=== PATIENT | female | born 1985 | race Hispanic/Latino ===

== ENCOUNTER 2020-03-20 11:37 | Emergency (ER) | payer SELFPAY ==
[~2020-03-20] VITALS: Ht 162.6 cm; Wt 90.7 kg
--- NOTE | 2020-03-20 13:28 | Diagnostic Imaging Report ---
X-ray left foot multiple views History: Trauma Comparison: None. Findings: No acute fracture, subluxation, radiopaque foreign body. There is significant soft tissue swelling on the medial aspect and dorsum of the foot. Impression: As above. Signed by: Boaz Winter MD on 03/20/2020 1:25 PM
--- NOTE | 2020-03-20 13:49 | Emergency Department Note ---
History of Present Illnes History of Present Illness Chief Complaint: Extremity Trauma/Pain History of Present Illness This is a 34 year old female Chief Complaint Comment Reports that she rolled her left foot inward and now has pain bearing weight. Pt has swelling and bruising to left foot on the top and toward the middle inward. . Historian: Patient Arrival Mode: Car Onset (how long ago): day(s) (2) Location: left foot Quality: sharp Radiation: Denies non-radiation, Denies back, Denies neck, Denies extremity, Denies abdomen, Denies periumbilical, Denies flank, Denies proximal, Denies distal, Denies other Severity: moderate Onset quality: sudden Duration (how long): day(s) (2) Timing of current episode: constant Progression: waxing and waning Chronicity: new Context: Denies recent illness, Denies recent surgery, Denies recent immobilization, Denies recent travel, Denies trauma/injury, Denies new medications, Denies hx of DVT/PE, Denies non-compliance w/ medications, Denies other Relieving factors: rest Exacerbating factors: movement Associated symptoms: Denies denies other symptoms, Denies confusion, Denies chest pain, Denies cough, Denies diaphoresis, Denies fever/chills, Denies headaches, Denies loss of appetite, Denies malaise, Denies nausea/vomiting, Denies rash, Denies seizure, Denies shortness of breath, Denies syncope, Denies weakness, Denies other Treatments prior to arrival: none Past Medical/Family History Physician Review I have reviewed the patient's past medical and family history. Any updates have been documented here. Past Medical History Recent Fever: No Clinical Suspicion of Infectio: No New/Unexplained Change in Ment: No Past Medical History: Asthma Past Surgical History: None Social History Smoking Cessation: Never Smoker Counseling Performed: No Alcohol Use: Occasional Any Illegal Drug Use: No Physically hurt or threatened: No Other Any Pre-Existing Lines (PICC,: No Review of Systems Review of Systems Constitutional: Reports no symptoms EENTM: Reports no symptoms Cardiovascular: Reports no symptoms Respiratory: Reports no symptoms Gastrointestinal: Reports no symptoms Genitourinary: Reports no symptoms Musculoskeletal: Reports as per HPI Integumentary: Reports no symptoms Neurological: Reports no symptoms Psychological: Reports no symptoms Endocrine: Reports no symptoms Hematological/Lymphatic: Reports no symptoms Physical Exam Related Data Allergies: Coded Allergies: No Known Allergies (Unverified , 03/20/20) Triage Vital Signs Vital Signs Date Time Temp Pulse Resp B/P (MAP) Pulse Ox O2 Delivery O2 Flow Rate FiO2 03/20/20 12:08 99.2 87 18 119/75 98 Room Air Vital signs reviewed: Yes Physical Exam CONSTITUTIONAL Constitutional: Present well-developed, Present well-nourished HENT HENT: Present normocephalic, Present atraumatic, Present oropharynx clear/ moist, Present nose normal HENT L/R: Present left ext ear normal, Present right ext ear normal EYES Eyes: Reports PERRL, Reports conjunctivae normal NECK Neck: Present ROM normal PULMONARY Pulmonary: Present effort normal, Present breath sounds normal CARDIOVASCULAR Cardiovascular: Present regular rhythm, Present heart sounds normal, Present capillary refill normal, Present normal rate GASTROINTESTINAL Abdominal: Present soft, Present nontender, Present bowel sounds normal GENITOURINARY Genitourinary: Present exam deferred SKIN Skin: Present warm, Present dry MUSCULOSKELETAL Musculoskeletal: Present tenderness, Present swelling (lef t foot) NEUROLOGICAL Neurological: Present alert, Present oriented x 3, Present no gross motor or sensory deficits PSYCHOLOGICAL Psychological: Present mood/affect normal, Present judgement normal Results Imaging Imaging results reviewed: Yes Assessment & Plan Medical Decision Making MDM fraccture contusion Reassessment Reassessment better Assessment & Plan Final Impression: (1) Acute pain due to trauma (2) Contusion of left foot Depart Disposition: HOME, SELF-CARE Last Vital Signs Date Time Temp Pulse Resp B/P (MAP) Pulse Ox O2 Delivery O2 Flow Rate FiO2 03/20/20 12:08 99.2 87 18 119/75 98 Room Air RUSS SALAS MD Mar 20, 2020 13:49
[2020-03-20] MEDS ORDERED: NAPROSYN500 MG PO (13:50)
== END 2020-03-20 13:55 | disposition home or self-care (01) ==
LOC: FSED 12:40
DX: S90.32XA Contusion of left foot, initial encounter (principal); X50.1XXA Overexertion from prolonged static or awkward postures, initial encounter; J45.909 Unspecified asthma, uncomplicated
CPT/HCPCS: 99283

== ENCOUNTER 2022-03-02 15:47 | Emergency (ER) | payer SELFPAY ==
[~2022-03-02] VITALS: Ht 160 cm; Wt 68.0 kg
[~2022-03-02 15:47] MED LIST: NAPROSYN500 MG PO
[2022-03-02] MEDS ORDERED: FLEET ENEMA133 ML PR (16:14)
[2022-03-02] MEDS ORDERED: ONELAX10 MG RC (16:14)
== END 2022-03-02 16:39 | disposition home or self-care (01) ==
LOC: MERGE 15:47 → FSED 15:47
DX: K59.00 Constipation, unspecified (principal); R10.30 Lower abdominal pain, unspecified; J45.909 Unspecified asthma, uncomplicated; Z86.73 Personal history of transient ischemic attack (TIA), and cerebral infarction without residual deficits
CPT/HCPCS: 99282; 99283